=== PATIENT | male | born 1975 | race Caucasian/White ===

== ENCOUNTER 2019-03-14 08:58 | Emergency (ER) | payer MEDICAID, SELFPAY ==
[~2019-03-14] VITALS: Ht 160 cm; Wt 92.5 kg
[2019-03-14] MEDS ORDERED: ATOR1TAB19 (09:03)
[2019-03-14] MEDS ORDERED: LISI20TA19 (09:03)
[2019-03-14] MEDS ORDERED: ALBU8.5H (09:03)
[2019-03-14] MEDS ORDERED: FLUT1BLS5 (09:03)
[2019-03-14] MEDS ORDERED: METF-791 (09:03)
[2019-03-14] MEDS ORDERED: IPRATROPIUM 0.5MG/ALBUTEROL 2.5MG INH SOL UD 3ML (DUONEB)(J7620) NEB ONE (09:30)
[2019-03-14 09:56] LABS: INFLUENZA A AMPLIFICATION NEGATIVE (NEGATIVE); INFLUENZA B AMPLIFICATION NEGATIVE (NEGATIVE)
--- NOTE | 2019-03-14 10:06 | REP ---
Two-view chest: 03/14/2019. Indication: Dyspnea. Comparison: 06/30/2012. Findings: The lungs are clear. There is no pleural effusion or pneumothorax. The cardiomediastinal silhouette is unremarkable. Impression: Clear lungs. Electronically Signed by Jay Meredith DO 03/14/2019 09:58 A
[2019-03-14] MEDS ORDERED: AZIT-12 PO (10:13)
[2019-03-14] MEDS ORDERED: VENTAER INH (10:13)
[2019-03-14 10:19] VITALS: BP 116/54
== END 2019-03-14 10:21 | disposition home or self-care (01) ==
LOC: M ED 08:58
DX: J20.9 Acute bronchitis, unspecified (principal); E11.9 Type 2 diabetes mellitus without complications; E78.5 Hyperlipidemia, unspecified; F17.210 Nicotine dependence, cigarettes, uncomplicated; Z79.899 Other long term (current) drug therapy; Z79.51 Long term (current) use of inhaled steroids; Z88.0 Allergy status to penicillin; Z88.8 Allergy status to other drugs, medicaments and biological substances

== ENCOUNTER 2020-09-15 11:03 | Emergency (ER) | payer SELFPAY ==
[~2020-09-15] VITALS: Ht 160 cm; Wt 87.7 kg
[~2020-09-15 11:03] MED LIST: ALBU8.5H; ATOR1TAB19; AZIT-12 PO; FLUT1BLS5; LISI20TA35; METF-838; VENTAER INH
[2020-09-15] MEDS ORDERED: predniSONE 20 MG TAB PO ONE (11:55)
[2020-09-15] MEDS ORDERED: FAMOTIDINE 20 MG TAB PO ONE (11:55)
[2020-09-15] MEDS ORDERED: LISI20TA35 PO (11:59)
[2020-09-15] MEDS ORDERED: ADV250INH INH (11:59)
[2020-09-15] MEDS ORDERED: PRED20TA PO (11:59)
[2020-09-15] MEDS ORDERED: VENTAER INH (11:59)
[2020-09-15] MEDS ORDERED: METF-838 PO (11:59)
[2020-09-15 12:58] VITALS: BP 191/90
== END 2020-09-15 12:59 | disposition home or self-care (01) ==
LOC: M ED 11:03
DX: L25.5 Unspecified contact dermatitis due to plants, except food (principal); I10 Essential (primary) hypertension; Z76.0 Encounter for issue of repeat prescription; E78.5 Hyperlipidemia, unspecified; J45.909 Unspecified asthma, uncomplicated; Z79.84 Long term (current) use of oral hypoglycemic drugs; Z79.899 Other long term (current) drug therapy; Z88.0 Allergy status to penicillin; Z88.6 Allergy status to analgesic agent

== ENCOUNTER 2021-03-18 11:06 | Emergency (ER) | payer OTHER, SELFPAY ==
[~2021-03-18] VITALS: Ht 157.5 cm; Wt 86.5 kg
[~2021-03-18 11:06] MED LIST changes: +ADV250INH INH; +LISI20TA35 PO; +METF-838 PO; +PRED20TA PO
--- OUTSIDE RECORDS SUMMARY | 2021-03-18 11:12 | CCD ---
Author Author [facility] Address Unknown Phone Unavailable Support Name Relationship Address Phone Fernando HSU Next Of Kin [address] [place] [address] Polina BIRD Next Of Kin [address] [place] [address] Fernando FRIAS Next Of [place] [address] [place] [address] DEBORAH ALLEN Next Of Kin UN UN, UN UN Unavailable SHARAD SARAH Next Of Kin [address] [address] SOLEDAD DAVIS Next Of Kin [address] [place] [address] JOSÉ LUIS TREE SERV Next Of Kin [address] [place] [address] DEISI BIRD Next Of Kin [address] [place] [address] Re-disclosure Warning The records that you are about to access may contain information from federally-assisted alcohol or drug abuse programs. If such information is present, then the following federally mandated warning applies: This information has been disclosed to you from records protected by federal confidentiality rules (42 CFR part 2). The federal rules prohibit you from making any further disclosure of this information unless further disclosure is expressly permitted by the written consent of the person to whom it pertains or as otherwise permitted by 42 CFR part 2. A general authorization for the release of medical or other information is NOT sufficient for this purpose. The Federal rules restrict any use of the information to criminally investigate or prosecute any alcohol or drug abuse patient.The records that you are about to access may contain highly sensitive health information, the redisclosure of which is protected by Article 27-F of the [place] State Public Health law. If you continue you may have access to information: Regarding HIV / AIDS; Provided by facilities licensed or operated by the [facility] of Mental Health; or Provided by the [facility] for People With Developmental Disabilities. If such information is present, then the following [facility] mandated warning applies: This information has been disclosed to you from confidential records which are protected by state law. State law prohibits you from making any further disclosure of this information without the specific written consent of the person to whom it pertains, or as otherwise permitted by law. Any unauthorized further disclosure in violation of state law may result in a fine or snf sentence or both. A general authorization for the release of medical or other information is NOT sufficient authorization for further disc losure. Medications No Information Insurance Providers Payer name Policy type / Coverage type Policy ID Covered green party ID Covered green party's relationship to douglas Policy Douglas Plan Information [employer] [facility] [id number] SELF [id number] [facility] COMMUNITY PLAN [id number] SELF [id number] SELF PAY UNAVAILABLE SELF UNAVAILA BLE [place] [facility] [id number] Self [id number] O UNAVAILABLE UNAVAILA BLE SELF PAY UNAVAILABLE SP UNAVAILA BLE SELF PAY ONLY [id number] SP [id number] YUSEF [id number] 18 [id number] YUSEF [id number] SELF PAY SP UNAVAILABLE S UNAVAILA BLE MEDICAID -O/P [id number] MEDICAID [id number] SP [id number] YUSEF [facility] [place] [id number] 18 [id number] YUSEF CARE [facility] [id number] Problems, Conditions, and Diagnoses No Information Surgeries/Procedures No Information Results No Information Social History No Information
--- OUTSIDE RECORDS SUMMARY | 2021-03-18 12:43 | CCD ---
Author Author [facility] Organization [facility] Address Unknown Phone Unavailable Support Name Relationship Address Phone Fernando HSU Next Of Kin [address] [place] [address] Polina BIRD Next Of Kin [address] [place] [address] Fernando FRIAS Next Of Kin [address] [place] [address] DEBORAH ALLEN Next Of Kin UN UN, UN UN Unavailable SHARAD SARAH Next Of Kin [address] [address] SOLEDAD DAVIS Next Of Kin [address] [place] [address] JOSÉ LUIS TREE SERV Next Of Kin [address] [place] [address] DEISI BIRD Next Of Kin [address] [place] [address] Re-disclosure Warning The records that you are [...] is protected by Article 27-F of the [place] State Public Health law. If you continue you may have access to information: Regarding HIV / AIDS; Provided by facilities licensed or operated by the [facility] Office of Mental Health; or Provided by the [facility] Office for People With Developmental Disabilities. If such information is present, then the following [facility] mandated warning applies: This information has been [...] law may result in a fine or long-term sentence or both. A general authorization for the release of medical or other information is NOT sufficient authorization for further disc losure. Medications No Information Insurance Providers Payer name Policy type / Coverage type Policy ID Covered alliance party ID Covered alliance party's relationship to douglas Policy Douglas Plan Information [employer] [id number] SELF [id number] [facility] COMMUNITY PLAN [id number] SELF [id number] SELF PAY UNAVAILABLE SELF UNAVAILA BLE YUSEF CARE [facility] [id number] [place] [facility] [id number] Self [id number] O UNAVAILABLE UNAVAILA BLE SELF PAY UNAVAILABLE SP UNAVAILA BLE YUSEF [id number] SP [id number] YUSEF [id number] YUSEF [id number] SELF PAY SP UNAVAILABLE S UNAVAILA BLE MEDICAID -O/P [id number] SELF PAY ONLY [id number] SP [id number] MEDICAID [id number] SP [id number] YUSEF CARE [facility] [id number] 18 [id number] Problems, Conditions, and Diagnoses No Information Surgeries/Procedures No Information Results No Information Social History No Information
[2021-03-18] MEDS ORDERED: ACETAMINOPHEN 325 MG TAB PO ONE (13:55)
--- NOTE | 2021-03-18 14:12 | REP ---
INDICATION: fall lower lumbar pain and right SIJ. COMPARISON: None. TECHNIQUE: Five views FINDINGS: There is mild to moderate posterior disc space narrowing at every level. Vertebral body height and alignment is within normal limits. The pedicles are intact bilaterally. There is mild marginal osteophyte formation seen on the right at the L 3 -4 level. There is no spondylolysis or spondylolisthesis. There is mild anterior lipping at every level. IMPRESSION: Chronic changes as described above. <Electronically signed by Jesus Alberto Hartman > 03/18/21 [id number]
[2021-03-18 14:40] VITALS: BP 138/94
== END 2021-03-18 14:59 | disposition home or self-care (01) ==
LOC: M ED 11:06
DX: S30.0XXA Contusion of lower back and pelvis, initial encounter (principal); S39.012A Strain of muscle, fascia and tendon of lower back, initial encounter; W01.198A Fall on same level from slipping, tripping and stumbling with subsequent striking against other object, initial encounter; Y92.9 Unspecified place or not applicable; Y93.89 Activity, other specified; Y99.9 Unspecified external cause status; J45.909 Unspecified asthma, uncomplicated; I10 Essential (primary) hypertension; E11.9 Type 2 diabetes mellitus without complications; F17.200 Nicotine dependence, unspecified, uncomplicated; Z79.84 Long term (current) use of oral hypoglycemic drugs; Z79.899 Other long term (current) drug therapy; Z88.0 Allergy status to penicillin; Z88.6 Allergy status to analgesic agent

== ENCOUNTER 2021-05-05 11:03 | Emergency (ER) | payer SELFPAY ==
[~2021-05-05] VITALS: Ht 157.5 cm; Wt 88.6 kg
--- NOTE | 2021-05-05 11:45 | REP ---
INDICATION: pain,swelling COMPARISON: None. TECHNIQUE: AP, lateral, bilateral oblique and sunrise views. FINDINGS: The osseous structures and joint spaces are intact and normal. There is no evidence for acute fracture or dislocation. No joint effusion is appreciated. Surrounding soft tissues are unremarkable. No subcutaneous emphysema or radiodense foreign body. IMPRESSION: Normal examination. No acute fracture or dislocation. <Electronically signed by Costa London > 05/05/21 [id number]
[2021-05-05 14:37] VITALS: BP 160/100
== END 2021-05-05 15:03 | disposition home or self-care (01) ==
LOC: M ED 12:18
DX: M23.92 Unspecified internal derangement of left knee (principal); E11.9 Type 2 diabetes mellitus without complications; I10 Essential (primary) hypertension; J44.9 Chronic obstructive pulmonary disease, unspecified; F17.200 Nicotine dependence, unspecified, uncomplicated; Z79.84 Long term (current) use of oral hypoglycemic drugs; Z79.899 Other long term (current) drug therapy; Z88.0 Allergy status to penicillin; Z88.6 Allergy status to analgesic agent; Z88.8 Allergy status to other drugs, medicaments and biological substances

== ENCOUNTER 2022-02-22 11:11 | Inpatient (IN) | payer MEDICAID, OTHER, SELFPAY ==
[~2022-02-22] VITALS: Ht 157.5 cm; Wt 82.5 kg
[~2022-02-22 11:11] MED LIST changes: -LISI20TA35; -METF-838
[2022-02-22 12:20] LABS: RSV AMPLIFICATION NEGATIVE (NEGATIVE)
[2022-02-22] MEDS ORDERED: ACETAMINOPHEN 500 MG TAB PO ONE (13:15)
[2022-02-22] MEDS ORDERED: VANCOMYCIN HCL 1,750 MG in IV FLUID PLACE HOLDER 1 EA IV ONE (13:15)
[2022-02-22] MEDS ORDERED: IPRATROPIUM 0.5MG/ALBUTEROL 2.5MG INH SOL UD 3ML (DUONEB) NEB ONE (13:20)
[2022-02-22] MEDS ORDERED: VANCOMYCIN HCL 1,000 MG, VIAL MATE ADAPTER 1 EACH in D5W 250 ML IV ONE (13:30)
[2022-02-22 13:57] LABS: BASO # 0.1 10^3/uL (0.0-0.2); BASO % 0.4 % (0.0-1.0); EOS % 0.2 % (0.0-3.0); HEMATOCRIT 47.1 % (42.0-52.0); LYMPH % 11.4 % (24.0-44.0); MEAN CORPUSCULAR HEMOGLOBIN 29.5 pg (27.0-33.0); MEAN CORPUSCULAR VOLUME 86.7 fl (80.0-96.0); MONO # 1.5 10^3/uL (0.0-0.8); MONO % 8.5 % (2.0-8.0); NEUTROPHILS # 13.4 10^3/uL (1.5-8.5); NEUTROPHILS % 78.2 % (36.0-66.0); PLATELET COUNT, AUTOMATED 405 10^3/uL (150-450); RED BLOOD COUNT 5.43 10^6/uL (4.30-6.10); WHITE BLOOD COUNT 17.1 10^3/uL (4.0-10.0)
[2022-02-22] MEDS ORDERED: methylPREDNISolone 125MG 2ML VIAL IV ONE (14:15)
[2022-02-22] MEDS ORDERED: diphenhydrAMINE 50MG/ML VIAL (J1200) IV STA (14:19)
[2022-02-22 14:24] LABS: ERYTHROCYTE SEDIMENTATION RATE 26 mm/hr (0-15)
[2022-02-22 14:28] LABS: ALBUMIN 2.9 GM/DL (3.2-5.2); ALT/SGPT 28 U/L (12-78); BILIRUBIN,DIRECT 0.2 MG/DL (0.0-0.2); BILIRUBIN,TOTAL 0.5 MG/DL (0.2-1.0); BLOOD UREA NITROGEN 6 MG/DL (7-18); CALCIUM LEVEL 9.3 MG/DL (8.5-10.1); CARBON DIOXIDE LEVEL 28 MEQ/L (21-32); CHLORIDE LEVEL 91 MEQ/L (98-107); CREATININE FOR GFR 0.98 MG/DL (0.70-1.30); GLOMERULAR FILTRATION RATE > 60.0 (>60); GLUCOSE, FASTING 356 MG/DL (70-100); POTASSIUM SERUM 4.4 MEQ/L (3.5-5.1); SODIUM LEVEL 127 MEQ/L (136-145); TOTAL PROTEIN 7.5 GM/DL (6.4-8.2)
[2022-02-22] MEDS ORDERED: VANCOMYCIN HCL 750 MG, VIAL MATE ADAPTER 1 EACH in D5W 250 ML IV ONE (14:30)
[2022-02-22] MEDS ORDERED: NS 2,590 ML in IV 1 EA IV ONE (14:30)
[2022-02-22] MEDS ORDERED: HOME MED LIST COMPLETE! XX SCH (14:50)
[2022-02-22 15:16] LABS: HEMOGLOBIN A1c 10.9 %
[2022-02-22] MEDS ORDERED: COMBIVENT RESPIMAT 100-20MCG INHALER 4GM INH PRN (17:20)
[2022-02-22] MEDS ORDERED: GLUCAGON INJ 1MG VIAL SC PRN (17:20)
[2022-02-22] MEDS ORDERED: GLUCOSE 4GM CHEW TABLET PO PRN (17:20)
[2022-02-22] MEDS ORDERED: NICOTINE 21MG/24HR 1 EA TRANSDERMAL TD ONE (17:20)
[2022-02-22] MEDS ORDERED: DEXTROSE 50% 50 ML SYRINGE IV PRN (17:20)
[2022-02-22] MEDS ORDERED: VANCOMYCIN HCL 1,000 MG, VIAL MATE ADAPTER 1 EACH in NS 250 ML IV SCH (17:45)
[2022-02-22] MEDS ORDERED: RIVAROXABAN 10MG TAB (XARELTO) PO SCH (18:00)
[2022-02-22] MEDS: INSULIN LISPRO (NovoLOG) PER UNIT SC SCH (18:38)
[2022-02-22] MEDS: ACETAMINOPHEN 325 MG TAB PO PRN (18:39)
[2022-02-22] MEDS: ADVAIR HFA 115/21MCG INHALER INH SCH (19:41)
[2022-02-22] MEDS ORDERED: LEVEMIR (INSULIN DETEMIR) 1 UNITS/0.01ML SC ONE (21:00)
[2022-02-22] MEDS ORDERED: INSULIN LISPRO (NovoLOG) PER UNIT SC STA (21:39)
[2022-02-22] MEDS ORDERED: VANCOMYCIN HCL 750 MG, VIAL MATE ADAPTER 1 EACH in D5W 250 ML IV SCH (22:00)
[2022-02-22] MEDS: ENOXAPARIN 40MG/0.4ML SYRINGE (J1650 PER 10MG) SC SCH (22:21)
[2022-02-22] MEDS ORDERED: VANCOMYCIN HCL 500 MG in D5W MINI-BAG PLUS 100 ML IV SCH (23:00)
[2022-02-23] MEDS: ACETAMINOPHEN 325 MG TAB PO PRN ×3 (04:26→17:48)
[2022-02-23 05:48] LABS: HEMATOCRIT 43.4 % (42.0-52.0); HEMOGLOBIN 14.8 g/dl (13.5-17.5); MEAN CORPUSCULAR HEMOGLOBIN 29.7 pg (27.0-33.0); MEAN CORPUSCULAR HGB CONC 34.1 g/dl (32.0-36.5); MEAN CORPUSCULAR VOLUME 87.1 fl (80.0-96.0); PLATELET COUNT, AUTOMATED 363 10^3/uL (150-450); RED BLOOD COUNT 4.98 10^6/uL (4.30-6.10); WHITE BLOOD COUNT 17.4 10^3/uL (4.0-10.0)
[2022-02-23 06:28] LABS: BLOOD UREA NITROGEN 12 MG/DL (7-18); CALCIUM LEVEL 9.2 MG/DL (8.5-10.1); CARBON DIOXIDE LEVEL 28 MEQ/L (21-32); CHLORIDE LEVEL 96 MEQ/L (98-107); CREATININE FOR GFR 0.77 MG/DL (0.70-1.30); GLOMERULAR FILTRATION RATE > 60.0 (>60); GLUCOSE, FASTING 292 MG/DL (70-100); POTASSIUM SERUM 3.8 MEQ/L (3.5-5.1); SODIUM LEVEL 130 MEQ/L (136-145)
[2022-02-23] MEDS: INSULIN LISPRO (NovoLOG) PER UNIT SC SCH ×4 (09:15→22:02)
[2022-02-23] MEDS ORDERED: VANCOMYCIN HCL 1,000 MG, VIAL MATE ADAPTER 1 EACH in D5W 250 ML IV ONE (10:00)
[2022-02-23] MEDS: ADVAIR HFA 115/21MCG INHALER INH SCH ×2 (10:24→19:59)
[2022-02-23] MEDS ORDERED: VANCOMYCIN HCL 750 MG, VIAL MATE ADAPTER 1 EACH in D5W 250 ML IV ONE (11:00)
[2022-02-23 12:12] VITALS: BP 148/74
[2022-02-23 15:50] VITALS: BP 141/78
[2022-02-23] MEDS ORDERED: LIDOCAINE W/EPINEPHRINE 1% 20ML VIAL SC SCH (16:30)
[2022-02-23] MEDS ORDERED: CALCIUM CARBONATE 500 MG CHEW U/D PO PRN (20:05)
[2022-02-23 22:00] VITALS: BP 124/76
[2022-02-23] MEDS: LEVEMIR (INSULIN DETEMIR) 1 UNITS/0.01ML SC SCH (22:01)
[2022-02-23] MEDS: ENOXAPARIN 40MG/0.4ML SYRINGE (J1650 PER 10MG) SC SCH (22:01)
[2022-02-24] MEDS: ACETAMINOPHEN 325 MG TAB PO PRN ×2 (05:20→17:59)
[2022-02-24 06:00] VITALS: BP 148/91
[2022-02-24 06:07] LABS: BASO # 0.1 10^3/uL (0.0-0.2); BASO % 0.4 % (0.0-1.0); EOS # 0.1 10^3/uL (0.0-0.5); EOS % 0.4 % (0.0-3.0); HEMATOCRIT 40.7 % (42.0-52.0); HEMOGLOBIN 13.7 g/dl (13.5-17.5); LYMPH # 2.8 10^3/uL (1.5-5.0); LYMPH % 21.1 % (24.0-44.0); MEAN CORPUSCULAR HEMOGLOBIN 29.5 pg (27.0-33.0); MEAN CORPUSCULAR HGB CONC 33.7 g/dl (32.0-36.5); MEAN CORPUSCULAR VOLUME 87.5 fl (80.0-96.0); MONO # 1.1 10^3/uL (0.0-0.8); NEUTROPHILS # 9.2 10^3/uL (1.5-8.5); PLATELET COUNT, AUTOMATED 374 10^3/uL (150-450); RED BLOOD COUNT 4.65 10^6/uL (4.30-6.10); WHITE BLOOD COUNT 13.3 10^3/uL (4.0-10.0)
[2022-02-24 06:34] LABS: BLOOD UREA NITROGEN 13 MG/DL (7-18); CALCIUM LEVEL 8.6 MG/DL (8.5-10.1); CARBON DIOXIDE LEVEL 30 MEQ/L (21-32); CHLORIDE LEVEL 98 MEQ/L (98-107); CREATININE FOR GFR 0.72 MG/DL (0.70-1.30); GLOMERULAR FILTRATION RATE > 60.0 (>60); GLUCOSE, FASTING 163 MG/DL (70-100); MAGNESIUM LEVEL 1.9 MG/DL (1.8-2.4); PHOSPHORUS LEVEL 2.8 MG/DL (2.5-4.9); POTASSIUM SERUM 3.6 MEQ/L (3.5-5.1); SODIUM LEVEL 132 MEQ/L (136-145)
[2022-02-24] MEDS: ADVAIR HFA 115/21MCG INHALER INH SCH ×2 (07:26→20:06)
[2022-02-24] MEDS: INSULIN LISPRO (NovoLOG) PER UNIT SC SCH ×4 (08:32→21:00)
[2022-02-24] MEDS: VANCOMYCIN HCL 1,000 MG, VIAL MATE ADAPTER 1 EACH in D5W 250 ML IV SCH ×2 (09:41→17:54)
[2022-02-24] MEDS ORDERED: VANCOMYCIN HCL 750 MG, VIAL MATE ADAPTER 1 EACH in D5W 250 ML IV ONE (10:00)
[2022-02-24 14:00] VITALS: BP 143/89
[2022-02-24 19:58] VITALS: BP 170/98
[2022-02-24] MEDS: ENOXAPARIN 40MG/0.4ML SYRINGE (J1650 PER 10MG) SC SCH (22:04)
[2022-02-24] MEDS: LEVEMIR (INSULIN DETEMIR) 1 UNITS/0.01ML SC SCH (22:04)
[2022-02-25] MEDS: VANCOMYCIN HCL 1,000 MG, VIAL MATE ADAPTER 1 EACH in D5W 250 ML IV SCH ×3 (00:59→17:23)
[2022-02-25 05:58] LABS: BASO # 0.1 10^3/uL (0.0-0.2); BASO % 0.9 % (0.0-1.0); EOS # 0.2 10^3/uL (0.0-0.5); EOS % 2.3 % (0.0-3.0); HEMATOCRIT 42.2 % (42.0-52.0); HEMOGLOBIN 14.4 g/dl (13.5-17.5); LYMPH # 2.3 10^3/uL (1.5-5.0); LYMPH % 27.3 % (24.0-44.0); MEAN CORPUSCULAR HEMOGLOBIN 29.6 pg (27.0-33.0); MEAN CORPUSCULAR HGB CONC 34.1 g/dl (32.0-36.5); MEAN CORPUSCULAR VOLUME 86.7 fl (80.0-96.0); MONO # 0.7 10^3/uL (0.0-0.8); MONO % 8.3 % (2.0-8.0); NEUTROPHILS # 4.9 10^3/uL (1.5-8.5); NEUTROPHILS % 57.5 % (36.0-66.0); PLATELET COUNT, AUTOMATED 396 10^3/uL (150-450); RED BLOOD COUNT 4.87 10^6/uL (4.30-6.10); WHITE BLOOD COUNT 8.4 10^3/uL (4.0-10.0)
[2022-02-25 06:34] VITALS: BP 158/72
[2022-02-25 06:34] LABS: BLOOD UREA NITROGEN 8 MG/DL (7-18); CALCIUM LEVEL 8.6 MG/DL (8.5-10.1); CARBON DIOXIDE LEVEL 29 MEQ/L (21-32); CHLORIDE LEVEL 101 MEQ/L (98-107); CREATININE FOR GFR 0.74 MG/DL (0.70-1.30); GLOMERULAR FILTRATION RATE > 60.0 (>60); GLUCOSE, FASTING 260 MG/DL (70-100); PHOSPHORUS LEVEL 3.2 MG/DL (2.5-4.9); POTASSIUM SERUM 3.8 MEQ/L (3.5-5.1); SODIUM LEVEL 135 MEQ/L (136-145)
[2022-02-25] MEDS: ADVAIR HFA 115/21MCG INHALER INH SCH ×2 (07:15→20:34)
[2022-02-25] MEDS: INSULIN LISPRO (NovoLOG) PER UNIT SC SCH ×4 (08:43→21:14)
[2022-02-25 14:00] VITALS: BP 164/91
[2022-02-25] MEDS ORDERED: ZYVO1TAB PO (14:30)
[2022-02-25] MEDS ORDERED: LEVEMIR (INSULIN DETEMIR) 1 UNITS/0.01ML SC SCH (21:00)
[2022-02-25] MEDS: ENOXAPARIN 40MG/0.4ML SYRINGE (J1650 PER 10MG) SC SCH (21:14)
[2022-02-25] MEDS: MUPIROCIN 2% OINT 22 GM TUBE TOP SCH (21:14)
[2022-02-25 22:00] VITALS: BP_SYST 144; BP_SYST 163; BP_DIAS 59; BP_DIAS 94
[2022-02-26] MEDS: VANCOMYCIN HCL 1,000 MG, VIAL MATE ADAPTER 1 EACH in D5W 250 ML IV SCH ×2 (00:42→08:44)
[2022-02-26 06:00] VITALS: BP 154/82
[2022-02-26] MEDS: ADVAIR HFA 115/21MCG INHALER INH SCH (07:31)
[2022-02-26 08:37] LABS: VANCOMYCIN LEVEL TROUGH 16.7 UG/ML (10.0-20.0)
[2022-02-26] MEDS: MUPIROCIN 2% OINT 22 GM TUBE TOP SCH (08:37)
[2022-02-26] MEDS: INSULIN LISPRO (NovoLOG) PER UNIT SC SCH ×2 (08:38→12:36)
[2022-02-26 08:56] LABS: BLOOD UREA NITROGEN 10 MG/DL (7-18); CALCIUM LEVEL 8.8 MG/DL (8.5-10.1); CARBON DIOXIDE LEVEL 26 MEQ/L (21-32); CHLORIDE LEVEL 98 MEQ/L (98-107); CREATININE FOR GFR 0.71 MG/DL (0.70-1.30); GLOMERULAR FILTRATION RATE > 60.0 (>60); GLUCOSE, FASTING 215 MG/DL (70-100); PHOSPHORUS LEVEL 3.9 MG/DL (2.5-4.9); POTASSIUM SERUM 4.3 MEQ/L (3.5-5.1); SODIUM LEVEL 132 MEQ/L (136-145)
[2022-02-26 09:12] LABS: VANCOMYCIN LEVEL TROUGH 13.1 UG/ML (10.0-20.0)
[2022-02-26 09:15] LABS: HEMATOCRIT 45.8 % (42.0-52.0); HEMOGLOBIN 15.9 g/dl (13.5-17.5); MEAN CORPUSCULAR HEMOGLOBIN 29.6 pg (27.0-33.0); MEAN CORPUSCULAR HGB CONC 34.7 g/dl (32.0-36.5); MEAN CORPUSCULAR VOLUME 85.1 fl (80.0-96.0); PLATELET COUNT, AUTOMATED 500 10^3/uL (150-450); RED BLOOD COUNT 5.38 10^6/uL (4.30-6.10); WHITE BLOOD COUNT 11.5 10^3/uL (4.0-10.0)
[2022-02-26 09:46] LABS: ATYPICAL LYMPH 1 % (0-5); BASOPHILS 1 % (0-1); EOSINOPHILS 1 % (0-3); LYMPHOCYTES 25 % (16-44); METAMYELOCYTES 2 % (0-0); MONOCYTES 5 % (0-5); MYELOCYTES 1 % (0-0); NEUTROPHILS 62 % (28-66); PROMYELOCYTES 1 % (0-0)
[2022-02-26 09:47] LABS: PLATELET ESTIMATE INCREASED (NORMAL)
[2022-02-26] MEDS ORDERED: METF-877 PO (11:00)
[2022-02-26] MEDS: ACETAMINOPHEN 325 MG TAB PO PRN (11:00)
[2022-02-26] MEDS ORDERED: SPIR1CAP INH (11:10)
[2022-02-26] MEDS ORDERED: MUPI2OI TOP (11:10)
[2022-02-26] MEDS ORDERED: HIBI4LIQ EX (11:12)
== END 2022-02-26 13:30 | disposition home or self-care (01) | DRG 710 ==
LOC: M ED 11:11 → M ED INP 17:11 → EEVIPCON 17:11 → ENRESERV 02-23 14:17 → M MSPAV 02-23 15:54
PROVIDERS: ADMIT Student in an Organized Health Care Education/Training Program; ATTEND Internal Medicine
PROC: 0JD70ZZ Extraction of Back Subcutaneous Tissue and Fascia, Open Approach (ICD-10-PCS; 2022-02-23)
PROC: 0H96XZZ Drainage of Back Skin, External Approach (ICD-10-PCS; 2022-02-23)
PROC: B246ZZZ Ultrasonography of Right and Left Heart (ICD-10-PCS; principal; 2022-02-24)
DX: A41.02 Sepsis due to Methicillin resistant Staphylococcus aureus (principal); L02.212 Cutaneous abscess of back [any part, except buttock and flank]; I10 Essential (primary) hypertension; L03.312 Cellulitis of back [any part except buttock and flank]; E11.9 Type 2 diabetes mellitus without complications; J44.9 Chronic obstructive pulmonary disease, unspecified; F17.210 Nicotine dependence, cigarettes, uncomplicated; Z79.84 Long term (current) use of oral hypoglycemic drugs; Z79.51 Long term (current) use of inhaled steroids; Z88.0 Allergy status to penicillin; Z88.6 Allergy status to analgesic agent; Z20.822 Contact with and (suspected) exposure to COVID-19; W57.XXXA Bitten or stung by nonvenomous insect and other nonvenomous arthropods, initial encounter; Z79.899 Other long term (current) drug therapy

== ENCOUNTER 2022-02-26 13:35 | Outpatient (CLI) | payer OTHER ==
[~2022-02-26] VITALS: Ht 157.5 cm; Wt 82.5 kg
[~2022-02-26 13:35] MED LIST changes: +HIBI4LIQ EX; +METF-877 PO; +MUPI2OI TOP; +SPIR1CAP INH; +ZYVO1TAB PO
[2022-02-26] MEDS ORDERED: DALBAVANCIN 1,500 MG in D5W 250 ML IV ONE (14:00)
[2022-02-26 15:15] VITALS: BP 180/80
== END 2022-02-26 17:39 | disposition home or self-care (01) ==
LOC: M INFU 13:35
PROVIDERS: ATTEND Internal Medicine Infectious Disease
DX: B95.62 Methicillin resistant Staphylococcus aureus infection as the cause of diseases classified elsewhere (principal); Z88.0 Allergy status to penicillin; Z88.6 Allergy status to analgesic agent; Z88.8 Allergy status to other drugs, medicaments and biological substances
CPT/HCPCS: 96365; J0875

== ENCOUNTER → 2022-03-24 | Outpatient (REF) | payer OTHER ==
[2022-03-24 18:06] LABS: BASO # 0.1 10^3/uL (0.0-0.2); BASO % 0.8 % (0.0-1.0); EOS # 0.2 10^3/uL (0.0-0.5); EOS % 3.1 % (0.0-3.0); HEMATOCRIT 45.6 % (42.0-52.0); HEMOGLOBIN 15.3 g/dl (13.5-17.5); LYMPH # 2.5 10^3/uL (1.5-5.0); LYMPH % 39.6 % (24.0-44.0); MEAN CORPUSCULAR HEMOGLOBIN 29.4 pg (27.0-33.0); MEAN CORPUSCULAR HGB CONC 33.6 g/dl (32.0-36.5); MEAN CORPUSCULAR VOLUME 87.5 fl (80.0-96.0); MONO # 0.5 10^3/uL (0.0-0.8); MONO % 8.3 % (2.0-8.0); NEUTROPHILS # 3.1 10^3/uL (1.5-8.5); NEUTROPHILS % 47.7 % (36.0-66.0); PLATELET COUNT, AUTOMATED 348 10^3/uL (150-450); RED BLOOD COUNT 5.21 10^6/uL (4.30-6.10); WHITE BLOOD COUNT 6.4 10^3/uL (4.0-10.0)
[2022-03-24 19:02] LABS: ALBUMIN 3.5 GM/DL (3.2-5.2); ALT/SGPT 38 U/L (12-78); BILIRUBIN,TOTAL 0.4 MG/DL (0.2-1.0); BLOOD UREA NITROGEN 9 MG/DL (7-18); CALCIUM LEVEL 9.2 MG/DL (8.5-10.1); CARBON DIOXIDE LEVEL 26 MEQ/L (21-32); CHLORIDE LEVEL 101 MEQ/L (98-107); CHOLESTEROL LEVEL 188 MG/DL (<200); CHOLESTEROL RISK RATIO 4.177 (<5); CREATININE FOR GFR 0.92 MG/DL (0.70-1.30); GLOMERULAR FILTRATION RATE > 60.0 (>60); GLUCOSE, FASTING 251 MG/DL (70-100); HDL CHOLESTEROL 45 MG/DL (>40); LDL CHOLESTEROL 113 MG/DL (<100); NON-HDL-C 143 MG/DL; POTASSIUM SERUM 4.3 MEQ/L (3.5-5.1); SODIUM LEVEL 132 MEQ/L (136-145); TOTAL PROTEIN 7.3 GM/DL (6.4-8.2); TRIGLYCERIDES LEVEL 150 MG/DL (<150)
[2022-03-24 20:14] LABS: TOTAL 25(OH) VITAMIN D 14.2 NG/ML (30.0-100.0); VITAMIN B12 LEVEL 392 PG/ML
[2022-03-24 20:22] LABS: FOLATE 15.2 NG/ML
== END ==
LOC: M LAB REF 16:34
PROVIDERS: ATTEND Nurse Practitioner Family
DX: A49.02 Methicillin resistant Staphylococcus aureus infection, unspecified site (principal); E11.65 Type 2 diabetes mellitus with hyperglycemia; I10 Essential (primary) hypertension; E55.9 Vitamin D deficiency, unspecified; R20.2 Paresthesia of skin

== ENCOUNTER 2022-06-20 13:32 | Emergency (ER) | payer OTHER ==
[~2022-06-20] VITALS: Ht 157.5 cm; Wt 81.8 kg
[2022-06-20] MEDS ORDERED: ONDANSETRON 4MG ORAL DISINTEGRATING TAB PO ONE (15:35)
[2022-06-20] MEDS ORDERED: ACETAMINOPHEN 500 MG TAB PO ONE (15:35)
[2022-06-20] MEDS ORDERED: MUCI600T31 PO (17:05)
[2022-06-20] MEDS ORDERED: ONDA4TAB6 PO (17:05)
[2022-06-20] MEDS ORDERED: VENTAER INH (17:05)
[2022-06-20 17:33] VITALS: BP 98/64
== END 2022-06-20 17:42 | disposition home or self-care (01) ==
LOC: M ED 13:32
DX: J06.9 Acute upper respiratory infection, unspecified (principal); B34.8 Other viral infections of unspecified site; Z88.0 Allergy status to penicillin; Z88.6 Allergy status to analgesic agent; F17.200 Nicotine dependence, unspecified, uncomplicated; Z79.51 Long term (current) use of inhaled steroids; Z79.84 Long term (current) use of oral hypoglycemic drugs; Z79.899 Other long term (current) drug therapy

== ENCOUNTER → 2022-07-02 | Outpatient (CLI) | payer OTHER ==
[~2022-07-02] MED LIST changes: +MUCI600T31 PO; +ONDA4TAB6 PO
== END ==
LOC: M WUC 11:13
PROVIDERS: ATTEND Nurse Practitioner Family
DX: J18.9 Pneumonia, unspecified organism (principal)

== ENCOUNTER → 2022-07-14 | Outpatient (REF) | payer OTHER ==
[2022-07-14 14:42] LABS: CREATININE, URINE 83.4 MG/DL
[2022-07-14 17:03] LABS: ALBUMIN 3.7 G/DL (3.2-5.2); ALKALINE PHOSPHATASE 140 U/L (46-116); BLOOD UREA NITROGEN 16 MG/DL (9-23); CALCIUM LEVEL 10.6 MG/DL (8.5-10.1); CARBON DIOXIDE LEVEL 27 MMOL/L (20-31); CHLORIDE LEVEL 95 MMOL/L (98-107); GLUCOSE, FASTING 215 MG/DL (60-100); POTASSIUM SERUM 4.7 MMOL/L (3.5-5.1); SODIUM LEVEL 132 MMOL/L (136-145)
[2022-07-14 19:06] LABS: ALT/SGPT 32 U/L (7.0-40); AST/SGOT 20 U/L (<34); BILIRUBIN,TOTAL 0.6 MG/DL (0.3-1.2); CREATININE FOR GFR 0.95 MG/DL (0.70-1.30); GLOMERULAR FILTRATION RATE > 60.0 (>60)
[2022-07-14 19:31] LABS: HIV 1&2 SCREEN CENTAUR NEGATIVE (NEGATIVE)
== END ==
LOC: M LAB REF 13:37
PROVIDERS: ATTEND Nurse Practitioner Family
DX: R31.9 Hematuria, unspecified (principal); E11.65 Type 2 diabetes mellitus with hyperglycemia; Z11.9 Encounter for screening for infectious and parasitic diseases, unspecified

== ENCOUNTER → 2022-07-21 | Outpatient (REF) | payer OTHER ==
[2022-07-21 13:02] LABS: BASO # 0.1 10^3/uL (0.0-0.2); BASO % 0.9 % (0.0-1.0); EOS # 0.2 10^3/uL (0.0-0.5); EOS % 1.8 % (0.0-3.0); HEMATOCRIT 43.1 % (42.0-52.0); HEMOGLOBIN 14.5 g/dl (13.5-17.5); LYMPH # 3.5 10^3/uL (1.5-5.0); LYMPH % 38.9 % (24.0-44.0); MEAN CORPUSCULAR HEMOGLOBIN 28.8 pg (27.0-33.0); MEAN CORPUSCULAR HGB CONC 33.6 g/dl (32.0-36.5); MEAN CORPUSCULAR VOLUME 85.7 fl (80.0-96.0); MONO # 0.9 10^3/uL (0.0-0.8); NEUTROPHILS # 4.3 10^3/uL (1.5-8.5); NEUTROPHILS % 47.3 % (36.0-66.0); PLATELET COUNT, AUTOMATED 315 10^3/uL (150-450); RED BLOOD COUNT 5.03 10^6/uL (4.30-6.10)
[2022-07-21 13:27] LABS: ALBUMIN 3.7 G/DL (3.2-5.2); ALKALINE PHOSPHATASE 106 U/L (46-116); ALT/SGPT 24 U/L (7.0-40); AST/SGOT 17 U/L (<34); BILIRUBIN,TOTAL 0.5 MG/DL (0.3-1.2); BLOOD UREA NITROGEN 26 MG/DL (9-23); CARBON DIOXIDE LEVEL 26 MMOL/L (20-31); CHLORIDE LEVEL 99 MMOL/L (98-107); CREATININE FOR GFR 1.21 MG/DL (0.70-1.30); GLOMERULAR FILTRATION RATE > 60.0 (>60); GLUCOSE, FASTING 162 MG/DL (60-100); MAGNESIUM LEVEL 1.6 MG/DL (1.8-2.4); POTASSIUM SERUM 4.3 MMOL/L (3.5-5.1); PTH INTACT 14.8 PG/ML (18.5-88.0); SODIUM LEVEL 136 MMOL/L (136-145)
== END ==
LOC: M LAB REF 10:01
PROVIDERS: ATTEND Nurse Practitioner Family
DX: E83.52 Hypercalcemia (principal)

== ENCOUNTER 2022-07-26 06:34 | Emergency (ER) | payer OTHER ==
[~2022-07-26] VITALS: Ht 160 cm; Wt 78.7 kg
[2022-07-26] MEDS ORDERED: methylPREDNISolone 125MG 2ML VIAL IM ONE (09:05)
[2022-07-26] MEDS ORDERED: LIDOCAINE VISCOUS 2% SOLN 15ML UDC SSP ONE (09:05)
[2022-07-26] MEDS ORDERED: KETOROLAC 60MG 2ML VIAL IM ONE (09:05)
[2022-07-26] MEDS ORDERED: CLINDAMYCIN 150MG CAPSULE PO ONE (09:05)
[2022-07-26] MEDS ORDERED: HYDR-3713 PO (09:44)
[2022-07-26] MEDS ORDERED: CLEO300C2 PO (09:44)
[2022-07-26] MEDS ORDERED: LIDO15SO4 PO (09:44)
[2022-07-26 09:52] VITALS: BP 145/94
== END 2022-07-26 10:04 | disposition home or self-care (01) ==
LOC: M ED 06:34
DX: K02.9 Dental caries, unspecified (principal); I10 Essential (primary) hypertension; F17.200 Nicotine dependence, unspecified, uncomplicated; Z79.899 Other long term (current) drug therapy; Z88.0 Allergy status to penicillin; Z88.6 Allergy status to analgesic agent; Z88.8 Allergy status to other drugs, medicaments and biological substances
CPT/HCPCS: 96372; 99283; J2930

== ENCOUNTER 2022-08-03 06:32 | Emergency (ER) | payer OTHER ==
[~2022-08-03] VITALS: Ht 160 cm; Wt 81.8 kg
[~2022-08-03 06:32] MED LIST changes: +CLEO300C2 PO; +HYDR-3713 PO; +LIDO15SO4 PO
[2022-08-03] MEDS ORDERED: TRUL10IN SC (06:45)
[2022-08-03] MEDS ORDERED: ROSU20TA5 PO (06:45)
[2022-08-03] MEDS ORDERED: NS 1,000 ML IV ONE (07:00)
[2022-08-03] MEDS ORDERED: MORPHINE 4 MG/ML 1ML VIAL IV ONE (07:05)
[2022-08-03 07:31] LABS: BASO # 0.1 10^3/uL (0.0-0.2); BASO % 0.7 % (0.0-1.0); EOS % 0.2 % (0.0-3.0); HEMATOCRIT 37.8 % (42.0-52.0); HEMOGLOBIN 12.5 g/dl (13.5-17.5); LYMPH # 1.9 10^3/uL (1.5-5.0); LYMPH % 10.8 % (24.0-44.0); MEAN CORPUSCULAR HEMOGLOBIN 28.9 pg (27.0-33.0); MEAN CORPUSCULAR HGB CONC 33.1 g/dl (32.0-36.5); MEAN CORPUSCULAR VOLUME 87.3 fl (80.0-96.0); MONO % 9.7 % (2.0-8.0); NEUTROPHILS # 13.4 10^3/uL (1.5-8.5); NEUTROPHILS % 76.8 % (36.0-66.0); PLATELET COUNT, AUTOMATED 294 10^3/uL (150-450); RED BLOOD COUNT 4.33 10^6/uL (4.30-6.10); WHITE BLOOD COUNT 17.4 10^3/uL (4.0-10.0)
[2022-08-03 07:59] LABS: CK-MB VALUE MASS < 1.0 NG/ML (<3.6); LIPASE 18 U/L (12-53)
[2022-08-03 08:01] LABS: ALBUMIN 2.6 G/DL (3.2-5.2); ALKALINE PHOSPHATASE 124 U/L (46-116); ALT/SGPT 33 U/L (7.0-40); AST/SGOT 28 U/L (<34); BILIRUBIN,TOTAL 0.5 MG/DL (0.3-1.2); BLOOD UREA NITROGEN 41 MG/DL (9-23); CALCIUM LEVEL 8.4 MG/DL (8.5-10.1); CARBON DIOXIDE LEVEL 26 MMOL/L (20-31); CHLORIDE LEVEL 94 MMOL/L (98-107); GLOMERULAR FILTRATION RATE 43.5 (>60); GLUCOSE, FASTING 182 MG/DL (60-100); POTASSIUM SERUM 4.3 MMOL/L (3.5-5.1); SODIUM LEVEL 129 MMOL/L (136-145); TOTAL PROTEIN 6.3 G/DL (5.7-8.2)
[2022-08-03 08:05] LABS: CPK CREATINE PHOSPHOKINASE 17 U/L (46-171); MB/CK RELATIVE INDEX 5.88 (< OR =4)
[2022-08-03 09:02] LABS: MONO # 1.7 10^3/uL (0.0-0.8)
[2022-08-03] MEDS ORDERED: FAMOTIDINE 20MG/2ML VIAL IVP ONE (09:05)
[2022-08-03] MEDS ORDERED: GI COCKTAIL 50ML BTL(HYOSCYAMINE/MAALOX/LIDOCAINE VISCOUS)(1:3:1) PO ONE (09:05)
[2022-08-03] MEDS: GASTROGRAFIN SOLUTION 30ML PO SCH ×2 (09:45→10:20)
[2022-08-03] MEDS ORDERED: ALBUTEROL SULFATE 2.5MG/0.5ML INH NEB SOLN INH ONE (11:25)
[2022-08-03] MEDS ORDERED: PEPC1TAB5 PO (12:31)
[2022-08-03] MEDS ORDERED: CARA1TAB6 PO (12:31)
[2022-08-03] MEDS ORDERED: PROT1TAB2 PO (12:31)
[2022-08-03 12:41] VITALS: BP 160/93
== END 2022-08-03 12:45 | disposition home or self-care (01) ==
LOC: M ED 06:32 → EDBD 06:32 → M ED 12:45
DX: K29.00 Acute gastritis without bleeding (principal); E11.9 Type 2 diabetes mellitus without complications; I10 Essential (primary) hypertension; E78.5 Hyperlipidemia, unspecified; J44.9 Chronic obstructive pulmonary disease, unspecified; F17.200 Nicotine dependence, unspecified, uncomplicated; Z87.442 Personal history of urinary calculi; Z88.0 Allergy status to penicillin; Z88.6 Allergy status to analgesic agent; Z79.52 Long term (current) use of systemic steroids; Z79.4 Long term (current) use of insulin; Z79.811 Long term (current) use of aromatase inhibitors; Z79.899 Other long term (current) drug therapy
CPT/HCPCS: 74176; 76705; 80053; 81001; 82550; 82553; 83690; 85025; 87088; 87186; 93005; 94640; 96361; 96374; 96375; 99284; J2270; Q9963; S0028

== ENCOUNTER 2022-12-08 08:40 | Emergency (ER) | payer OTHER ==
[~2022-12-08] VITALS: Ht 160 cm; Wt 76.3 kg
[~2022-12-08 08:40] MED LIST changes: +CARA1TAB6 PO; +LIDO15SO PO; -LIDO15SO4 PO; +PEPC1TAB5 PO; +PROT1TAB2 PO; +ROSU20TA61 PO; +TRUL10IN SC
[2022-12-08 09:35] LABS: BASO # 0.1 10^3/uL (0.0-0.2); BASO % 0.7 % (0.0-1.0); EOS # 1.2 10^3/uL (0.0-0.5); EOS % 12.5 % (0.0-3.0); HEMATOCRIT 51.6 % (42.0-52.0); HEMOGLOBIN 17.1 g/dl (13.5-17.5); LYMPH # 2.2 10^3/uL (1.5-5.0); LYMPH % 21.9 % (24.0-44.0); MEAN CORPUSCULAR HEMOGLOBIN 28.4 pg (27.0-33.0); MEAN CORPUSCULAR HGB CONC 33.1 g/dl (32.0-36.5); MEAN CORPUSCULAR VOLUME 85.6 fl (80.0-96.0); MONO # 0.8 10^3/uL (0.0-0.8); MONO % 8.1 % (2.0-8.0); NEUTROPHILS # 5.6 10^3/uL (1.5-8.5); NEUTROPHILS % 56.1 % (36.0-66.0); PLATELET COUNT, AUTOMATED 347 10^3/uL (150-450); RED BLOOD COUNT 6.03 10^6/uL (4.30-6.10); WHITE BLOOD COUNT 9.9 10^3/uL (4.0-10.0)
[2022-12-08 09:47] LABS: INR 0.96
[2022-12-08] MEDS ORDERED: NITROGLYCERIN 2% OINT 1 GM *U/D* PKT TOP ONE ×2 (09:55→11:00)
[2022-12-08 10:02] LABS: CK-MB VALUE MASS 2.7 NG/ML (<3.6)
[2022-12-08 10:03] LABS: BLOOD UREA NITROGEN 15 MG/DL (9-23); CALCIUM LEVEL 9.2 MG/DL (8.5-10.1); CARBON DIOXIDE LEVEL 24 MMOL/L (20-31); CHLORIDE LEVEL 104 MMOL/L (98-107); CREATININE FOR GFR 1.08 MG/DL (0.70-1.30); GLOMERULAR FILTRATION RATE > 60.0 (>60); GLUCOSE, FASTING 151 MG/DL (60-100); POTASSIUM SERUM 4.2 MMOL/L (3.5-5.1); SODIUM LEVEL 136 MMOL/L (136-145)
[2022-12-08 10:18] LABS: ALBUMIN 3.9 G/DL (3.2-5.2); ALKALINE PHOSPHATASE 98 U/L (46-116); ALT/SGPT 20 U/L (7.0-40); AST/SGOT 13 U/L (<34); BILIRUBIN,DIRECT 0.1 MG/DL (<0.4); BILIRUBIN,TOTAL 0.6 MG/DL (0.3-1.2); TOTAL PROTEIN 7.4 G/DL (5.7-8.2)
[2022-12-08 10:22] LABS: CPK CREATINE PHOSPHOKINASE 147 U/L (46-171); MB/CK RELATIVE INDEX 1.83 (< OR =4)
[2022-12-08] MEDS: METOPROLOL 5 MG/5 ML VIAL IV SCH ×3 (10:25→10:47)
[2022-12-08 10:53] LABS: CK-MB VALUE MASS 1.6 NG/ML (<3.6)
[2022-12-08 10:57] LABS: MB/CK RELATIVE INDEX 1.14 (< OR =4)
[2022-12-08] MEDS ORDERED: LABETALOL 100MG/20ML VIAL IV PRN (11:00)
[2022-12-08] MEDS ORDERED: ISOVUE-370 76% 100ML VIAL As Ordered ONE (11:36)
[2022-12-08 12:56] VITALS: BP 260/120
[2022-12-08 13:19] LABS: CK-MB VALUE MASS 2.3 NG/ML (<3.6); MB/CK RELATIVE INDEX 1.4 (< OR =4)
[2022-12-08] MEDS ORDERED: LABE100T71 PO (14:12)
[2022-12-08 15:18] VITALS: BP 129/94; TEMP 98; O2SAT 96
== END 2022-12-08 15:21 | disposition home or self-care (01) ==
LOC: M ED 08:40
DX: R07.89 Other chest pain (principal); I10 Essential (primary) hypertension; E11.9 Type 2 diabetes mellitus without complications; E78.5 Hyperlipidemia, unspecified; J44.9 Chronic obstructive pulmonary disease, unspecified; F17.290 Nicotine dependence, other tobacco product, uncomplicated; Z99.0 Dependence on aspirator; Z88.6 Allergy status to analgesic agent; Z79.84 Long term (current) use of oral hypoglycemic drugs; Z79.899 Other long term (current) drug therapy
CPT/HCPCS: 36415; 71045; 71275; 80048; 80076; 82550; 82553; 85025; 85610; 85730; 93005; 93041; 94760; 96365; 96366; 99285; J1920; Q9967

== ENCOUNTER 2023-07-28 23:30 | Emergency (ER) | payer MEDICAID, OTHER, SELFPAY ==
[~2023-07-28 23:30] MED LIST changes: +LABE100T40 PO; -LIDO15SO PO; +LIDO15SO8 PO
[2023-07-29 00:15] LABS: BASO # 0.1 10^3/uL (0.0-0.2); BASO % 1.1 % (0.0-1.0); EOS # 0.3 10^3/uL (0.0-0.5); EOS % 2.9 % (0.0-3.0); HEMATOCRIT 37.3 % (42.0-52.0); HEMOGLOBIN 12.9 g/dl (13.5-17.5); LYMPH # 2.7 10^3/uL (1.5-5.0); LYMPH % 29.3 % (24.0-44.0); MEAN CORPUSCULAR HEMOGLOBIN 30.6 pg (27.0-33.0); MEAN CORPUSCULAR HGB CONC 34.6 g/dl (32.0-36.5); MEAN CORPUSCULAR VOLUME 88.4 fl (80.0-96.0); MONO # 0.8 10^3/uL (0.0-0.8); MONO % 9.1 % (2.0-8.0); NEUTROPHILS % 55.5 % (36.0-66.0); PLATELET COUNT, AUTOMATED 305 10^3/uL (150-450); RED BLOOD COUNT 4.22 10^6/uL (4.30-6.10)
[2023-07-29 00:16] LABS: INR 0.97; PARTIAL THROMBOPLASTIN TIME 23.8 SECONDS (24.8-34.2); PROTHROMBIN TIME 12.6 SECONDS (12.5-14.5)
[2023-07-29 00:24] LABS: CK-MB VALUE MASS 1.1 NG/ML (<3.6); LIPASE 28 U/L (12-53)
[2023-07-29 00:26] LABS: ALBUMIN 3.6 G/DL (3.2-5.2); ALKALINE PHOSPHATASE 86 U/L (46-116); ALT/SGPT 79 U/L (7.0-40); AST/SGOT 27 U/L (<34); BILIRUBIN,DIRECT < 0.1 MG/DL (<0.4); BILIRUBIN,TOTAL 0.3 MG/DL (0.3-1.2); BLOOD UREA NITROGEN 20 MG/DL (9-23); CALCIUM LEVEL 9.4 MG/DL (8.5-10.1); CARBON DIOXIDE LEVEL 24 MMOL/L (20-31); CHLORIDE LEVEL 102 MMOL/L (98-107); CPK CREATINE PHOSPHOKINASE 96 U/L (46-171); CREATININE FOR GFR 1.24 MG/DL (0.70-1.30); GLOMERULAR FILTRATION RATE > 60.0 (>60); GLUCOSE, FASTING 294 MG/DL (60-100); MB/CK RELATIVE INDEX 1.14 (< OR =4); POTASSIUM SERUM 4.5 MMOL/L (3.5-5.1); SODIUM LEVEL 136 MMOL/L (136-145); TOTAL PROTEIN 6.6 G/DL (5.7-8.2)
[2023-07-29] MEDS: methylPREDNISolone 125MG 2ML VIAL IV ONE (00:43)
[2023-07-29 00:59] LABS: RSV AMPLIFICATION NEGATIVE (NEGATIVE)
[2023-07-29 01:13] VITALS: TEMP 97.8
[2023-07-29] MEDS ORDERED: ISOVUE-370 76% 100ML VIAL As Ordered ONE (01:14)
[2023-07-29 02:39] LABS: CK-MB VALUE MASS 1.3 NG/ML (<3.6)
[2023-07-29 02:45] VITALS: BP 160/77; O2SAT 98
[2023-07-29 02:51] LABS: MB/CK RELATIVE INDEX 1.39 (< OR =4)
[2023-07-29] MEDS ORDERED: PRED20TA PO (04:27)
[2023-07-29] MEDS: NS 1,000 ML IV ONE (04:41)
== END 2023-07-29 05:18 | disposition home or self-care (01) ==
LOC: M ED 23:30
DX: U07.1 COVID-19 (principal); E87.29 Other acidosis; E11.9 Type 2 diabetes mellitus without complications; I10 Essential (primary) hypertension; E78.5 Hyperlipidemia, unspecified; J44.9 Chronic obstructive pulmonary disease, unspecified; I51.9 Heart disease, unspecified; Z87.891 Personal history of nicotine dependence; Z82.49 Family history of ischemic heart disease and other diseases of the circulatory system; Z79.4 Long term (current) use of insulin; Z79.899 Other long term (current) drug therapy; Z88.0 Allergy status to penicillin; Z88.8 Allergy status to other drugs, medicaments and biological substances; Z88.6 Allergy status to analgesic agent
CPT/HCPCS: 71045; 71275; 80048; 80076; 82550; 82553; 83605; 83690; 84484; 85025; 85610; 85730; 87631; 93005; 93041; 96361; 96374; 99285; J2930; Q9967

== ENCOUNTER → 2023-11-11 | Outpatient (REF) | payer SELFPAY ==
[~2023-11-11] MED LIST changes: +ONDA-282 PO; -ONDA4TAB6 PO
[2023-11-11 12:24] LABS: BASO # 0.1 10^3/uL (0.0-0.2); BASO % 1.1 % (0.0-1.0); EOS # 0.1 10^3/uL (0.0-0.5); EOS % 1.9 % (0.0-3.0); HEMATOCRIT 45.1 % (42.0-52.0); HEMOGLOBIN 15.8 g/dl (13.5-17.5); LYMPH # 1.7 10^3/uL (1.5-5.0); LYMPH % 23.4 % (24.0-44.0); MEAN CORPUSCULAR HEMOGLOBIN 30.2 pg (27.0-33.0); MEAN CORPUSCULAR VOLUME 86.2 fl (80.0-96.0); MONO # 0.8 10^3/uL (0.0-0.8); MONO % 10.4 % (2.0-8.0); NEUTROPHILS # 4.5 10^3/uL (1.5-8.5); PLATELET COUNT, AUTOMATED 267 10^3/uL (150-450); RED BLOOD COUNT 5.23 10^6/uL (4.30-6.10); WHITE BLOOD COUNT 7.3 10^3/uL (4.0-10.0)
[2023-11-11 12:33] LABS: THYROID STIMULATING HORMONE 1.459 uIU/ML (0.55-4.78); TOTAL 25(OH) VITAMIN D 10.9 NG/ML (20.0-100.0)
[2023-11-11 12:43] LABS: ALBUMIN 4.1 G/DL (3.2-5.2); ALKALINE PHOSPHATASE 109 U/L (46-116); ALT/SGPT 45 U/L (7.0-40); AST/SGOT 20 U/L (<34); BILIRUBIN,TOTAL 0.7 MG/DL (0.3-1.2); BLOOD UREA NITROGEN 28 MG/DL (9-23); CALCIUM LEVEL 9.6 MG/DL (8.5-10.1); CARBON DIOXIDE LEVEL 24 MMOL/L (20-31); CHLORIDE LEVEL 99 MMOL/L (98-107); CHOLESTEROL LEVEL 273 MG/DL (<200); CHOLESTEROL RISK RATIO 6.62 (<5); CREATININE FOR GFR 1.53 MG/DL (0.70-1.30); GLOMERULAR FILTRATION RATE 52.2 (>60); GLUCOSE, FASTING 433 MG/DL (60-100); HDL CHOLESTEROL 41.2 MG/DL (>40); NON-HDL-C 231.8 MG/DL; POTASSIUM SERUM 4.2 MMOL/L (3.5-5.1); SODIUM LEVEL 132 MMOL/L (136-145); TOTAL PROTEIN 7.2 G/DL (5.7-8.2); TRIGLYCERIDES LEVEL 840 MG/DL (<150)
[2023-11-11 13:14] LABS: HEMOGLOBIN A1c 12.9 % (4.0-6.0)
== END ==
LOC: M LAB REF 12:02
PROVIDERS: ATTEND Nurse Practitioner Family
DX: E55.9 Vitamin D deficiency, unspecified (principal); E66.9 Obesity, unspecified

== ENCOUNTER 2025-03-28 08:17 | Emergency (ER) | payer SELFPAY ==
[~2025-03-28] VITALS: Ht 160 cm; Wt 88.4 kg
[~2025-03-28 08:17] MED LIST changes: -ADV250INH INH; +ADVA1AER9 INH; -ROSU20TA61 PO; +ROSU20TA86 PO
[2025-03-28] MEDS ORDERED: IBUP600T42 PO (09:25)
[2025-03-28 11:14] VITALS: BP 179/89; TEMP 97.6; O2SAT 94
== END 2025-03-28 11:20 | disposition home or self-care (01) ==
LOC: M ED 08:17
DX: M79.632 Pain in left forearm (principal); E11.9 Type 2 diabetes mellitus without complications; I10 Essential (primary) hypertension; Z88.0 Allergy status to penicillin; Z88.8 Allergy status to other drugs, medicaments and biological substances; Z88.6 Allergy status to analgesic agent